=== PATIENT | male | born 1985 | race African-American/Black ===

== ENCOUNTER 2019-01-29 16:50 | Emergency (ER) | payer SELFPAY | END 2019-01-29 19:56 | disposition home or self-care (01) | LOC: JERFT 16:50 ==

== ENCOUNTER 2019-02-01 17:02 | Emergency (ER) | payer OTHER ==
--- NOTE | 2019-02-01 17:32 | PDOC ---
Rapid Medical Evaluation Chief Complaint: Penile Drainage Time Seen by Provider: 02/01/19 17:27 Medical Evaluation: Allergies Allergy/AdvReac Type Severity Reaction Status Date / Time No Known Allergies Allergy Verified 01/29/19 17:02 02/01/19 17:28 I have performed a brief in-person evaluation of this patient. The patient presents with a chief complaint of: recurrant penile drainage- treated last week for same Pertinent physical exam findings: well appearing I have ordered the following: Urine Gc/ Chlamyd / UA The patient will proceed to the ED for further evaluation. 02/01/19 17:31 Discharge Disposition - Diagnosis Penile discharge - Referrals - Patient Instructions - Post Discharge Activity
[2019-02-01 17:38] VITALS: BP 130/91; PULSE 85; TEMP 98.1; BMI 24.2
--- NOTE | 2019-02-01 17:53 | PDOC ---
History of Present Illness - General Chief Complaint: Penile Drainage Stated Complaint: DISCHARGE Time Seen by Provider: 02/01/19 17:27 History Source: Patient (clear penile discharge, seen 2 days ago, tx for STI, no pain) Exam Limitations: No Limitations - History of Present Illness Associated Symptoms: denies: rash Past History - Travel Traveled outside of the country in the last 30 days: No Close contact w/someone who was outside of country & ill: No - Past Medical History Allergies/Adverse Reactions: Allergies Allergy/AdvReac Type Severity Reaction Status Date / Time No Known Allergies Allergy Verified 02/01/19 17:31 COPD: No Dialysis: Yes (Hemodialysis) HTN: No - Surgical History Gastric Stapling: No - Immunization History Immunization Up to Date: No - Suicide/Smoking/Psychosocial Hx Smoking History: Never smoked Have you smoked in the past 12 months: No Information on smoking cessation initiated: No Hx Alcohol Use: No Drug/Substance Use Hx: No Review of Systems - Review of Systems Constitutional: No: Chills, Fever ABD/GI: No: Abdominal Distended, Nausea : Yes: Discharge. No: Burning, Dysuria, Frequency, Flank Pain, Hematuria, Incontinence, Pain, Urgency, Testicular Mass, Testicular Swelling, Testicular Pain *Physical Exam - Vital Signs Last Vital Signs Temp Pulse Resp BP Pulse Ox 98.1 F 85 18 130/91 98 02/01/19 17:28 02/01/19 17:28 02/01/19 17:28 02/01/19 17:28 02/01/19 17:28 - Physical Exam General Appearance: Yes: Nourished Male Genitalia: positive: normal genitalia, other (no discharge expressed, circumcised male). negative: discharge, testicular tenderness, testicular mass , hematuria Medical Decision Making - Medical Decision Making 02/01/19 17:52 33y/o M seen for penile discharge s/p unprotected intercourse 3wks ago treated empirically for GC/CT both cx neg pt reports he is here for f/u he has not had any sexual encounter since tx denies pelvic pain, dysuria, urinary frequency or testicular *DC/Admit/Observation/Transfer Diagnosis at time of Disposition: Penile discharge - Discharge Dispostion Disposition: HOME Condition at time of disposition: Stable Decision to Admit order: No - Referrals Referrals: Carmine Taylor MD [Staff Physician] - Amadou Jackson MD., [Staff Physician] - - Patient Instructions Printed Discharge Instructions: DI for Urethritis Additional Instructions: Your last culture was negative for any venereal disease you will be re-checked today please follow up primary care clinic and urology if symptoms persist always have protected sexual intercourse Return to the ER if worsening symptoms occurs. - Post Discharge Activity
== END 2019-02-01 18:23 | disposition home or self-care (01) ==
LOC: JERFT 17:02
DX: R36.9 Urethral discharge, unspecified (principal)
CPT/HCPCS: 99281-25

== ENCOUNTER 2019-10-19 14:07 | Emergency (ER) | payer OTHER ==
[2019-10-19 14:22] VITALS: BP 120/86; PULSE 77; TEMP 98.2; BMI 23.8
[2019-10-19] MEDS ORDERED: ACETAMINOPHEN 325 MG TABLET (FP) PO ONE (15:21)
[2019-10-19] MEDS ORDERED: MAG HYDROX/AL HYDROX/SIMETH -MYLANTA- ORAL SUSPENSION PO ONE (15:21)
[2019-10-19] MEDS ORDERED: ACETAMINOPHEN 325 MG TABLET (FP) ONE (15:25)
[2019-10-19] MEDS ORDERED: MAG HYDROX/AL HYDROX/SIMETH 30 ML UNIT-DOSE CUP ONE (15:26)
[2019-10-19 15:44] LABS: EOS % 1.7 % (0-4.5); HEMATOCRIT 35.4 % (35.4-49); HEMOGLOBIN 11.4 GM/dL (11.7-16.9); LYMPH % 16.2 % (8-40); MCHC 32.1 g/dl (32.0-35.9); MEAN CELL VOLUME 93.4 fl (80-96); MEAN PLT VOLUME 7.9 fl (7.5-11.1); MONO % 8.9 % (3.8-10.2); NEUT % 72.2 % (42.8-82.8); PLATELET COUNT 281 K/MM3 (134-434); RBC 3.79 M/mm3 (4.00-5.60); WHITE BLOOD COUNT 6.5 K/mm3 (4.0-10.0)
--- NOTE | 2019-10-19 15:53 | PDOC ---
History of Present Illness - General History Source: Patient - History of Present Illness Timing/Duration: reports: intermittent Abdominal Pain Onset Location: reports: epigastric <Yue CanelaSantosJaz - Last Filed: 10/19/19 16:00> <DenisseMaxwell - Last Filed: 10/22/19 13:41> - General Chief Complaint: Nausea/Vomiting Stated Complaint: VOMITING Time Seen by Provider: 10/19/19 14:52 Past History - Past Medical History COPD: No Dialysis: Yes (Hemodialysis) HTN: No - Surgical History Gastric Stapling: No - Immunization History Immunization Up to Date: No - Psycho Social/Smoking Cessation Hx Smoking History: Never smoked Have you smoked in the past 12 months: No Information on smoking cessation initiated: No Hx Alcohol Use: No Drug/Substance Use Hx: No <Yue CanelaSantosJaz - Last Filed: 10/19/19 16:00> <Maxwell Salcedo - Last Filed: 10/22/19 13:41> - Past Medical History Allergies/Adverse Reactions: Allergies Allergy/AdvReac Type Severity Reaction Status Date / Time No Known Allergies Allergy Verified 02/01/19 17:31 Review of Systems - Review of Systems Constitutional: No: Chills, Fever Respiratory: No: Cough, Shortness of Breath Cardiac (ROS): No: Chest Pain ABD/GI: Yes: Nausea, Vomiting. No: Blood Streaked Bowels, Constipated, Diarrhea, Rectal Bleeding, Tarry Stools : No: Burning, Dysuria, Flank Pain, Hematuria <Shruti Canela - Last Filed: 10/19/19 16:00> *Physical Exam - Vital Signs Last Vital Signs Temp Pulse Resp BP Pulse Ox 98.2 F 77 17 120/86 100 10/19/19 14:18 10/19/19 14:18 10/19/19 14:18 10/19/19 14:18 10/19/19 14:18 - Physical Exam General Appearance: Yes: Appropriately Dressed. No: Apparent Distress HEENT: positive: Normal Voice Neck: positive: Supple Respiratory/Chest: positive: Lungs Clear, Normal Breath Sounds. negative: Respiratory Distress Cardiovascular: positive: Regular Rate, S1, S2 Gastrointestinal/Abdominal: positive: Normal Bowel Sounds, Soft. negative: Tender, Distended, Guarding, Rebound Musculoskeletal: negative: CVA Tenderness Integumentary: positive: Dry, Warm Neurologic: positive: Fully Oriented, Alert, Normal Mood/Affect <Shruti Canela - Last Filed: 10/19/19 16:00> - Vital Signs Last Vital Signs Temp Pulse Resp BP Pulse Ox 98.2 F 77 17 120/86 100 10/19/19 14:18 10/19/19 14:18 10/19/19 14:18 10/19/19 14:18 10/19/19 14:18 <Maxwell Salcedo - Last Filed: 10/22/19 13:41> ED Treatment Course - LABORATORY CBC & Chemistry Diagram: 10/19/19 15:33 10/19/19 15:33 <Shruti Canela - Last Filed: 10/19/19 16:00> - LABORATORY CBC & Chemistry Diagram: 10/19/19 15:33 10/19/19 15:33 - ADDITIONAL ORDERS Additional order review: 10/19/19 15:33 RBC 3.79 L MCV 93.4 MCHC 32.1 RDW 18.0 H MPV 7.9 Neutrophils % 72.2 Lymphocytes % 16.2 Monocytes % 8.9 Eosinophils % 1.7 Basophils % 1.0 - Medications Given in the ED: ED Medications Discontinued Medications Generic Name Dose Route Start Last Admin Trade Name Constanza PRN Reason Stop Dose Admin Acetaminophen 650 mg 10/19/19 15:21 10/19/19 15:38 Tylenol - PO 10/19/19 15:22 650 mg ONCE ONE Administration Al Hydroxide/Mg Hydroxide 30 ml 10/19/19 15:21 10/19/19 15:37 Mylanta Suspension - PO 10/19/19 15:22 650 mg ONCE ONE Administration <Maxwell Salcedo - Last Filed: 10/22/19 13:41> Medical Decision Making - Medical Decision Making 10/19/19 15:19 33 yo M, HTN, ESRD on PD, here w/ epigastric "heart burn" x 3 days, on and off, worse when supine at nights, no a/w food. . Vomited twice. No change in BM, dysuria, f/c see exam Possible gatsritis/GERD, likely biliary, pancreatitis, UTI/Pyelo or appy Sxs since improved Exam wnl -ekg/labs given hx -meds -reassess 10/19/19 15:53 Patient signed out to [facility] pending w/u and eval <Shruti Canela - Last Filed: 10/19/19 16:00> - Medical Decision Making 10/22/19 13:41 I reviewed the case of the mid-level practitioner and was available for consultation while in the emergency department <Maxwell Salcedo - Last Filed: 10/22/19 13:41> Discharge - Discharge Information Problems reviewed: Yes <Shruti Canela - Last Filed: 10/19/19 16:00> <Maxwell Salcedo - Last Filed: 10/22/19 13:41> - Discharge Information Clinical Impression/Diagnosis: Dyspepsia Condition: Fair Disposition: HOME - Follow up/Referral Referrals: Cheo Murphy MD [Primary Care Provider] - - Patient Discharge Instructions Additional Instructions: Rest, drink lots of fluids: Teas, water, soups Alana zion, carbonated beverages for the bubbles May try peppermint teas Avoid heavy , spicy or fatty foods until symptoms have resolved Continue abgg-ayo-vclezxv medications for symptomatic relief-Amphojel, Gaviscon, Tums. Avoid taking Maalox or Mylanta as this may affect your electrolyte levels. Tylenol for pain Followup with private physician in one to 2 days as needed Return to emergency department for worsened symptoms, fevers, dehydration - Post Discharge Activity
[2019-10-19 16:21] LABS: ALBUMIN 3.5 g/dl (3.4-5.0); BILIRUBIN,TOTAL 1.2 mg/dL (0.2-1); BLOOD UREA NITROGEN 59.5 mg/dL (7-18); CALCIUM 9.3 mg/dL (8.5-10.1); POTASSIUM 3.7 mmol/L (3.5-5.1); TOT PROT 7.6 g/dl (6.4-8.2)
[2019-10-19 16:26] LABS: CREATININE 23.3 mg/dL (0.55-1.3)
--- NOTE | 2019-10-19 17:49 | PDOC ---
*Physical Exam - Vital Signs Last Vital Signs Temp Pulse Resp BP Pulse Ox 98.2 F 77 17 120/86 100 10/19/19 14:18 10/19/19 14:18 10/19/19 14:18 10/19/19 14:18 10/19/19 14:18 - Physical Exam General Appearance: Yes: Appropriately Dressed. No: Apparent Distress Gastrointestinal/Abdominal: positive: Normal Bowel Sounds, Soft. negative: Tender Musculoskeletal: positive: Normal Inspection. negative: CVA Tenderness ED Treatment Course - LABORATORY CBC & Chemistry Diagram: 10/19/19 15:33 10/19/19 15:33 - ADDITIONAL ORDERS Additional order review: Laboratory Results 10/19/19 15:33 Sodium 134 L Potassium 3.7 Chloride 91 L Carbon Dioxide 30 Anion Gap 13 BUN 59.5 H Creatinine 23.3 H* Est GFR (CKD-EPI)AfAm 2.54 Est GFR (CKD-EPI)NonAf 2.19 Random Glucose 100 Calcium 9.3 Total Bilirubin 1.2 H AST 13 L ALT 22 Alkaline Phosphatase 86 Total Protein 7.6 Albumin 3.5 Lipase 389 10/19/19 15:33 RBC 3.79 L MCV 93.4 MCHC 32.1 RDW 18.0 H MPV 7.9 Neutrophils % 72.2 Lymphocytes % 16.2 Monocytes % 8.9 Eosinophils % 1.7 Basophils % 1.0 - Medications Given in the ED: ED Medications Discontinued Medications Generic Name Dose Route Start Last Admin Trade Name Freq PRN Reason Stop Dose Admin Acetaminophen 650 mg 10/19/19 15:21 10/19/19 15:38 Tylenol - PO 10/19/19 15:22 650 mg ONCE ONE Administration Al Hydroxide/Mg Hydroxide 30 ml 10/19/19 15:21 10/19/19 15:37 Mylanta Suspension - PO 10/19/19 15:22 650 mg ONCE ONE Administration ED Progress Note - Progress Note Progress Note: 10/19/19 17:41 Received signout from TA Kwok. Briefly this is a 33-year-old man history of hypertension and end-stage renal disease on peritoneal dialysis 10.5 hours nightly who presents emergency department for evaluation of epigastric pain with nausea and vomiting starting this morning. He reported his pain 6/10 upon arrival describes as a burning sensation. Patient has received Tylenol and Mylanta Laboratory testing notable for creatinine of 23 which is consistent with the patient's baseline. T bili mildly elevated at 1.2. LFTs are unremarkable. Patient is pending EKG and disposition is pending reevaluation and EKG results. Medical Decision Making - Medical Decision Making 10/19/19 17:41 Patient reports his pain is currently 2/10 after receiving Maalox. EKG sinus rhythm with rate of 65. Intervals within normal limits with a QTC of 438. Normal axis. No ischemic changes noted. As patient currently feels better and has an unremarkable physical exam I feel it is safe to discharge the patient home to follow-up with renal for continued evaluation. Patient has been instructed to not take Maalox or Mylanta for dyspepsia as an outpatient and was recommended to take Tums, Gaviscon or Amphojel for GERD. I discussed the physical exam findings, ancillary test results and final diagnoses with the patient. I answered all of the patient's questions. The pat ient was satisfied with the care received and felt comfortable with the discharge plan and treatment plan. The patient will call their primary care physician within 24 hours to arrange follow-up and will return to the Emergency Department with any new, persistent or worsening symptoms. Portions of this note have been documented using voice recognition software. As a result, errors may occur in the ramp attendant process. Effort has been made to correct all grammatical and ramp attendant error, but some may have been missed which may produce sporadic inaccurate ramp attendant or nonsensical phrases. 10/19/19 17:52 Discharge - Discharge Information Problems reviewed: Yes Clinical Impression/Diagnosis: Dyspepsia Condition: Fair Disposition: HOME - Admission No - Follow up/Referral Referrals: Cheo Murphy MD [Primary Care Provider] - - Patient Discharge Instructions Additional Instructions: Rest, drink lots of fluids: Teas, water, soups Alana zion, carbonated beverages for the bubbles May try peppermint teas Avoid heavy , spicy or fatty foods until symptoms have resolved Continue kaoc-krc-bavdglz medications for symptomatic relief-Amphojel, Gaviscon, Tums. Avoid taking Maalox or Mylanta as this may affect your electrolyte levels. Tylenol for pain Followup with private physician in one to 2 days as needed Return to emergency department for worsened symptoms, fevers, dehydration - Post Discharge Activity
--- NOTE | 2019-10-21 09:53 | EKG ---
Test Reason : Blood Pressure : / mmHG Vent. Rate : 065 BPM Atrial Rate : 065 BPM P-R Int : 198 ms QRS Dur : 112 ms QT Int : 422 ms P-R-T Axes : 071 080 077 degrees QTc Int : 438 ms NORMAL SINUS RHYTHM POSSIBLE LEFT ATRIAL ENLARGEMENT BORDERLINE ECG NO PREVIOUS ECGS AVAILABLE Confirmed by Noé Roberts MD ([id number]) on 10/21/2019 9:53:03 AM Referred By: Confirmed By:Noé Roberts MD
== END 2019-10-19 18:35 | disposition home or self-care (01) ==
LOC: JER 14:07
DX: R10.13 Epigastric pain (principal); I12.0 Hypertensive chronic kidney disease with stage 5 chronic kidney disease or end stage renal disease; N18.6 End stage renal disease; Z99.2 Dependence on renal dialysis
CPT/HCPCS: 36415; 80053; 83690; 85025; 93005; 93010; 99284-25

== ENCOUNTER 2020-05-16 05:05 | Emergency (ER) | payer OTHER ==
[2020-05-16 05:17] VITALS: PULSE 81; TEMP 98.4; BMI 23.6
[2020-05-16] MEDS ORDERED: SODIUM CHLORIDE 0.9% 500 ML INFUS.BAG IV ONE (05:34)
[2020-05-16] MEDS ORDERED: ONDANSETRON 4 MG/2 ML VIAL IVPUSH ONE (05:35)
[2020-05-16] MEDS ORDERED: FAMOTIDINE 20 MG/50 ML IVPB 20 MG/50 ML MG IVPB ONE (05:35)
[2020-05-16] MEDS ORDERED: MAG HYDROX/AL HYDROX/SIMETH 30 ML UNIT-DOSE CUP PO ONE (05:36)
--- OUTSIDE RECORDS SUMMARY | 2020-05-16 05:51 | XMS ---
:1985 Author Organization [facility] Support Name Relationship Address Phone SE, SELF-EMPLOYED Unavailable Unavailable Unavailable SE Unavailable Unavailable Unavailable [employer] [place] [address] Re-disclosure Warning The records that you are about to access may contain information from federally- assisted alcohol or drug abuse programs. If such information is present, then the following federally mandated warning applies: This information has been disclosed to you from records protected by federal confidentiality rules (42 CFR part 2). The federal rules prohibit you from making any further disclosure of this information unless further disclosure is expressly permitted by the written consent of the person to whom it pertains or as otherwise permitted by 42 CFR part 2. A general authorization for the release of medical or other information is NOT sufficient for this purpose. The Federal rules restrict any use of the information to criminally investigate or prosecute any alcohol or drug abuse patient.The records that you are about to access may contain highly sensitive health information, the redisclosure of which is protected by Article 27-F of the [facility] Public Health law. If you continue you may haveaccess to information: Regarding HIV / AIDS; Provided by facilities licensed or operated by the [facility] Office of Mental Health; or Provided by the [facility] Office for People With Developmental Disabilities. If such information is present, then the following [facility] mandated warning applies: This information has been disclosed to you from confidential records which are protected by state law. State law prohibits you from making any further disclosure of this information without the specific written consent of the person to whom it pertains, or as otherwise permitted by law. Any unauthorized further disclosure in violation of state law may result in a fine or senior care sentence or both. A general authorization for the release of medical or other information is NOT sufficient authorization for further disclosure. Encounters Encounter Providers Location Date Indications Data Source(s ) Outpatient 04/18/2020 09:59:00 [facility] Outpatient 04/17/2020 11:45:00 [facility]) Outpatient 04/16/2020 01:14:00 [facility]) Outpatient 04/15/2020 10:57:00 [facility] Insurance Providers Payer name Policy type Policy ID Covered Covered green party's Policy P yasmin / Coverage green party ID relationship to Pleitez Inf ormation type pleitez [facility] [id number] SP [id number] CARE HMO/POS/EPO [facility] [id number] SP [id number] CARE MVP EXCHANGE [id number] SP [id number] PLAN SELF PAY SP INSURANCE [facility] MEDICAID [id number] SP [id number] O [facility] MEDICAID [id number] SP [id number] O
[2020-05-16] MEDS ORDERED: MAG HYDROX/AL HYDROX/SIMETH 30 ML UNIT-DOSE CUP ONE (05:58)
[2020-05-16 06:10] VITALS: BP 153/107
[2020-05-16 06:13] LABS: BASO % 0.5 % (0-2.0); HEMATOCRIT 37.9 % (35.4-49); HEMOGLOBIN 12.7 GM/dL (11.7-16.9); LYMPH % 7.7 % (8-40); MCH 28.9 pg (25.7-33.7); MCHC 33.4 g/dl (32.0-35.9); MEAN CELL VOLUME 86.3 fl (80-96); MEAN PLT VOLUME 8.8 fl (7.5-11.1); MONO % 21.7 % (3.8-10.2); NEUT % 70.1 % (42.8-82.8); PLATELET COUNT 187 K/MM3 (134-434); RDW 17.5 % (11.9-15.9); WHITE BLOOD COUNT 10.2 K/mm3 (4.0-10.0)
--- NOTE | 2020-05-16 06:28 | PDOC ---
Attending Attestation - Resident Resident Name: Maxwell De León - ED Attending Attestation I have performed the following: I have examined & evaluated the patient, The case was reviewed & discussed with the resident, I agree w/resident's findings & plan, Exceptions are as noted - HPI HPI: 05/16/20 06:54 See resident HPI - Physicial Exam PE: 05/16/20 06:54 Agree with documented exam - Medical Decision Making 05/16/20 06:54 Gerd, gastritis, pancreatitis, electrolyte derangement, dialysis sequelae f/u labs, symptomatic tx re-eval dispo per clinical course Discharge - Discharge Information Problems reviewed: Yes Clinical Impression/Diagnosis: Dyspepsia Condition: Stable Disposition: HOME - Follow up/Referral Referrals: Ajay Rogers MD [Staff Physician] - Cheo Murphy MD [Primary Care Provider] - - Patient Discharge Instructions Patient Printed Discharge Instructions: DI for Nausea -- Adult, DI for Vomiting -- Adult Additional Instructions: You were seen in the ER for nausea, vomiting. Your symptoms improved with medications. Your bloodwork was normal. Follow up with your densitometer reader (stomach doctor), and primary care physician as soon as possible, in the next 2- 3 days. Return to the ER if you develop weakness, confusion, intractable nausea, vomiting, or high fevers. - Post Discharge Activity
--- NOTE | 2020-05-16 06:29 | PDOC ---
History of Present Illness - General Chief Complaint: Nausea/Vomiting Stated Complaint: VOMITING Time Seen by Provider: 05/16/20 05:14 History Source: Patient - History of Present Illness Initial Comments: 05/16/20 06:20 34M w/hx GERD, ESRD on peritoneal dialysis secondary to HTN p/w two days of acute onset nausea, vomiting. He reports being unable to tolerate solid or liquid po secondary to vomiting. He reports multiple nbnb vomiting with any po intake. He reports completing usual peritoneal dialysis schedule without interruptions or recent changes. Surgical hx L AV fistula, peritoneal dialysis catheter. He reports similar prior episodes, but that this one is worse than prior. No bowel movements since symptom onset, but reports flatus. He denies any fevers, chills, weakness, confusion, chest pain, or sob. Past History - Medical History Allergies/Adverse Reactions: Allergies Allergy/AdvReac Type Severity Reaction Status Date / Time No Known Allergies Allergy Verified 05/16/20 05:15 COPD: No Dialysis: Yes (Hemodialysis) HTN: No - Surgical History Gastric Stapling: No - Immunization History Immunization Up to Date: No - Psycho-Social/Smoking History Smoking History: Never smoked Have you smoked in the past 12 months: No Information on smoking cessation initiated: No - Substance Abuse Hx (Audit-C & DAST Scrn) How often the patient has a drink containing alcohol: Never Score: In Men: 4 or > Positive; In Women: 3 or > Positive: 0 Screen Result (Pos requires Nsg. Audit-10AR): Negative In the last yr the pt used illegal drug/Rx for NonMed reason: No Score: Yes response is considered Positive: 0 Screen Result (Positive result requires Nsg. DAST-10): Negative Review of Systems - Review of Systems Able to Perform ROS?: Yes Comments:: 05/16/20 06:29 GENERAL/CONSTITUTIONAL: No fever or chills. No weakness. HEAD, EYES, EARS, NOSE AND THROAT: No change in vision. No ear pain or discharge. No sore throat. CARDIOVASCULAR: No chest pain or shortness of breath RESPIRATORY: No cough, wheezing, or hemoptysis. GASTROINTESTINAL: Nausea, vomiting. No diarrhea or constipation. GENITOURINARY: No dysuria, frequency, or change in urination. MUSCULOSKELETAL: No joint or muscle swelling or pain. No neck or back pain. SKIN: No rash NEUROLOGIC: No headache, vertigo, loss of consciousness, or change in strength /sensation. ENDOCRINE: No increased thirst. No abnormal weight change HEMATOLOGIC/LYMPHATIC: No anemia, easy bleeding, or history of blood clots. ALLERGIC/IMMUNOLOGIC: No hives or skin allergy. *Physical Exam - Vital Signs Last Vital Signs Temp Pulse Resp BP Pulse Ox 98.4 F 81 22 H 153/107 H 100 05/16/20 05:15 05/16/20 05:15 05/16/20 05:15 05/16/20 06:09 05/16/20 05:15 - Physical Exam 05/16/20 06:30 GENERAL: Awake, alert, and fully oriented, in no acute distress HEAD: No signs of trauma, normocephalic, atraumatic EYES: PERRLA, EOMI, sclera anicteric, conjunctiva clear ENT: Auricles normal inspection, hearing grossly normal, nares patent, oropharynx clear without exudates. Moist mucosa NECK: Normal ROM, supple, no lymphadenopathy, JVD, or masses LUNGS: No distress, speaks full sentences, clear to auscultation bilaterally HEART: Regular rate and rhythm, normal S1 and S2, no murmurs, rubs or gallops, peripheral pulses normal and equal bilaterally. ABDOMEN: Peritoneal dialysis catheter. Soft, nontender, normoactive bowel sounds. No guarding, no rebound. No masses EXTREMITIES : L AV fistula. Normal inspection, Normal range of motion, no edema. No clubbing or cyanosis NEUROLOGICAL: Cranial nerves II through XII grossly intact. Normal speech, normal gait, no focal sensorimotor deficits SKIN: Warm, Dry, normal turgor, no rashes or lesions noted ED Treatment Course - LABORATORY CBC & Chemistry Diagram: 05/16/20 05:40 05/16/20 05:40 - RADIOLOGY Radiology Studies Ordered: Category Date Time Status CHEST X-RAY PORTABLE* [RAD] Stat Radiology 05/16/20 05:34 Ordered - Medications Given in the ED: ED Medications Discontinued Medications Generic Name Dose Route Start Last Admin Trade Name Freq PRN Reason Stop Dose Admin Famotidine/Sodium Chloride 20 mg in 50 mls @ 100 mls/hr 05/16/20 05:35 05/16/20 06:06 Pepcid 20 Mg Premixed Ivpb - IVPB 05/16/20 06:04 100 mls/hr ONCE ONE Administration Ondansetron HCl 4 mg 05/16/20 05:35 05/16/20 06:06 Zofran Injection IVPUSH 05/16/20 05:36 4 mg ONCE ONE Administration Sodium Chloride 1,000 ml 05/16/20 05:34 05/16/20 05:49 Normal Saline - IV 05/16/20 05:35 1,000 ml ONCE ONE Administration Medical Decision Making - Medical Decision Making 05/16/20 06:32 34M w/hx ESRD on peritoneal dialysis p/w two days of acute onset nausea, vomiting. Ddx electrolyte derangement secondary to peritoneal dialysis. GERD also possible given similar prior episode that resolved rapidly with maalox. Pancreatitis possible, although no abdominal pain or tenderness on exam. Plan: CBC CMP EKG CXR Lipase Zofran Pepcid Maalox Dispo: Discharge pending reassessment 05/16/20 06:50 On reassessment, patient feels significant improvement. po challenge in progress. K - 3.1, plan for po k-jovana Plan for discharge with close GI follow up if patient now tolerating po Discharge - Discharge Information Problems reviewed: Yes Clinical Impression/Diagnosis: Dyspepsia Condition: Stable Disposition: HOME - Admission No - Follow up/Referral Referrals: Cheo Murphy MD [Primary Care Provider] - Ajay Rogers MD [Staff Physician] - - Patient Discharge Instructions Patient Printed Discharge Instructions: DI for Nausea -- Adult, DI for Vomiting -- Adult Additional Instructions: You were seen in the ER for nausea, vomiting. Your symptoms improved with medications. Your bloodwork was normal. Follow up with your internet designer (stomach doctor), and primary care physician as soon as possible, in the next 2- 3 days. Return to the ER if you develop weakness, confusion, intractable nausea, vomiting, or high fevers. - Post Discharge Activity
[2020-05-16 06:41] LABS: ALBUMIN 3.1 g/dl (3.4-5.0); BILIRUBIN,TOTAL 0.5 mg/dL (0.2-1); BLOOD UREA NITROGEN 73.8 mg/dL (7-18); CALCIUM 9.8 mg/dL (8.5-10.1); POTASSIUM 3.1 mmol/L (3.5-5.1); TOT PROT 8.4 g/dl (6.4-8.2)
[2020-05-16] MEDS ORDERED: POTASSIUM CHLORIDE TABS 20 MEQ TABLET.ER (FP) PO ONE ×2 (06:49→07:01)
[2020-05-16 07:12] LABS: CREATININE 24.7 mg/dL (0.55-1.3)
[2020-05-16 09:43] LABS: ANISOCYTOSIS 1+; MACROCYTOSIS 0; PLATELET ESTIMATE NORMAL
--- NOTE | 2020-05-16 10:30 | EKG ---
Test Reason : Blood Pressure : / mmHG Vent. Rate : 083 BPM Atrial Rate : 083 BPM P-R Int : 190 ms QRS Dur : 104 ms QT Int : 396 ms P-R-T Axes : 059 085 077 degrees QTc Int : 465 ms NORMAL SINUS RHYTHM POSSIBLE LEFT ATRIAL ENLARGEMENT NONSPECIFIC INTRAVENTRICULAR CONDUCTION DEFECT Confirmed by NANCY BROCK MD ([id number]) on 05/16/2020 10:30:02 AM Referred By: Confirmed By:NANCY BROCK MD
== END 2020-05-16 07:38 | disposition home or self-care (01) ==
LOC: JER 05:05
PROC: 3E033NZ Introduction of Analgesics, Hypnotics, Sedatives into Peripheral Vein, Percutaneous Approach (ICD-10-PCS; principal; 2020-05-16)
PROC: 3E033GC Introduction of Other Therapeutic Substance into Peripheral Vein, Percutaneous Approach (ICD-10-PCS; 2020-05-16)
DX: K30 Functional dyspepsia (principal)
CPT/HCPCS: 36415; 71045-TC-FY; 80053; 83605; 83690; 84484; 85025; 93005; 93010; 99285-25

== ENCOUNTER 2020-07-07 19:36 | Inpatient (IN) | payer OTHER ==
[2020-07-07 20:11] VITALS: BMI 10.8
[2020-07-07] MEDS ORDERED: morphine CARPU-JECT 4 MG/1 ML DISP.SYRIN IVPUSH ONE (20:55)
[2020-07-07 21:39] LABS: BASO % 0.7 % (0-2.0); EOS % 0.4 % (0-4.5); HEMATOCRIT 28.4 % (35.4-49); HEMOGLOBIN 9.5 GM/dL (11.7-16.9); LYMPH % 4.8 % (8-40); MCH 30.9 pg (25.7-33.7); MCHC 33.4 g/dl (32.0-35.9); MEAN CELL VOLUME 92.5 fl (80-96); MEAN PLT VOLUME 7.9 fl (7.5-11.1); MONO % 4.7 % (3.8-10.2); NEUT % 89.4 % (42.8-82.8); PLATELET COUNT 203 K/MM3 (134-434); RBC 3.07 M/mm3 (4.00-5.60); RDW 19.2 % (11.9-15.9); WHITE BLOOD COUNT 5.4 K/mm3 (4.0-10.0)
[2020-07-07] MEDS ORDERED: MORPHINE SULFATE 2 MG/ML VIAL ONE (21:40)
[2020-07-07 21:45] LABS: INR 1.23 (0.83-1.09)
[2020-07-07 21:47] LABS: ACTIVATED PTT 25.9 SECONDS (25.2-36.5)
[2020-07-07] MEDS ORDERED: ACETAMINOPHEN 1000 MG/100 ML VIAL (NON FORMULARY) IVPB ONE (22:02)
[2020-07-07 22:03] LABS: POTASSIUM 3.7 mmol/L (3.5-5.1)
[2020-07-07 22:05] LABS: CALCIUM 8.8 mg/dL (8.5-10.1)
[2020-07-07 22:06] LABS: BLOOD UREA NITROGEN 66.5 mg/dL (7-18)
[2020-07-07] MEDS ORDERED: ACETAMINOPHEN INJECTION 100 ML IVPB ONE (22:08)
[2020-07-07 22:10] LABS: BILIRUBIN,TOTAL 0.7 mg/dL (0.2-1); TOT PROT 6.6 g/dl (6.4-8.2)
[2020-07-07] MEDS ORDERED: SODIUM CHLORIDE 0.9% 500 ML INFUS.BAG IV ONE (22:46)
[2020-07-07] MEDS ORDERED: VANCOMYCIN 1 GM in D5W (PRE-DOCKED) 1,000 MG/250 ML IVPB ONE (22:47)
[2020-07-07] MEDS ORDERED: PIPERACILLIN/TAZOB 4.5 GM 4.5 GM in DEXTROSE 5%-WATER 100 ML IVPB ONE (22:59)
[2020-07-07] MEDS ORDERED: PIPERACILLIN/TAZOB 4.5 GM 4.5 GM/100 ML BAG IVPB ONE (23:45)
[2020-07-07] MEDS ORDERED: VANCOMYCIN 1 GRAM (PRE-DOCKED) 1,000 MG/250 ML BAG IVPB ONE (23:45)
[2020-07-08] MEDS ORDERED: ACETAMINOPHEN 1000 MG/100 ML VIAL (NON FORMULARY) IVPB PRN ×4 (04:29→06:39)
[2020-07-08] MEDS ORDERED: HEPARIN NA (PORCINE) 5,000 UNITS/ML 1ML VIAL SQ SCH (06:00)
[2020-07-08 06:21] LABS: HEMATOCRIT 26.4 % (35.4-49); HEMOGLOBIN 8.7 GM/dL (11.7-16.9); MCH 30.5 pg (25.7-33.7); MCHC 32.9 g/dl (32.0-35.9); MEAN CELL VOLUME 92.7 fl (80-96); MEAN PLT VOLUME 7.6 fl (7.5-11.1); PLATELET COUNT 161 K/MM3 (134-434); RBC 2.85 M/mm3 (4.00-5.60); RDW 19.1 % (11.9-15.9); WHITE BLOOD COUNT 8.8 K/mm3 (4.0-10.0)
[2020-07-08 06:40] LABS: ALBUMIN 2.5 g/dl (3.4-5.0); BLOOD UREA NITROGEN 71.3 mg/dL (7-18); CALCIUM 8.2 mg/dL (8.5-10.1)
[2020-07-08 06:41] LABS: MAGNESIUM 1.4 mg/dL (1.8-2.4)
[2020-07-08 06:43] LABS: IRON SERUM 9 ug/dL (50-175)
[2020-07-08 06:44] LABS: PHOSPHOROUS 3.4 mg/dL (2.5-4.9); TOTAL IRON BINDING CAPACITY 190 ug/dL (250-450)
[2020-07-08 06:45] LABS: TOT PROT 5.9 g/dl (6.4-8.2)
[2020-07-08 07:02] LABS: CREATININE 23.1 mg/dL (0.55-1.3)
[2020-07-08] MEDS: SEVELAMER CARBONATE 800 MG TAB (FP) PO SCH ×2 (09:38→17:30)
[2020-07-08] MEDS: LOSARTAN POTASSIUM 50 MG TABLET PO SCH (10:00)
[2020-07-08] MEDS ORDERED: PIPERACILLIN/TAZOB 2.25 GM 2.25 GM in DEXTROSE 5%-WATER - 50 ML IVPB SCH (10:00)
[2020-07-08] MEDS: CALCITRIOL 0.25 MCG CAPSULE (FP) PO SCH (10:00)
[2020-07-08] MEDS ORDERED: LABETALOL HCL 100 MG TABLET (FP) ONE ×2 (10:28→23:35)
[2020-07-08] MEDS ORDERED: LOSARTAN POTASSIUM 50 MG TABLET ONE (10:29)
[2020-07-08] MEDS: POLYETHYLENE GLYCOL 3350 255 GM BTL PO SCH (10:45)
[2020-07-08] MEDS: LABETALOL HCL 200 MG, LABETALOL HCL 100 MG PO SCH (10:46)
[2020-07-08] MEDS: PIPERACILLIN/TAZOB 2.25 GM 2.25 GM in DEXTROSE 5%-WATER - 50 ML IVPB SCH ×2 (14:16→18:02)
[2020-07-08] MEDS ORDERED: PIPERACILLIN/TAZOB 2.25 GM 2.25 GM/50 ML BAG IVPB ONE (14:24)
[2020-07-08] MEDS ORDERED: HEPARIN NA (PORCINE) 5,000 UNITS/ML 1ML VIAL ONE (23:36)
[2020-07-09] MEDS ORDERED: PIPERACILLIN/TAZOB 2.25 GM 2.25 GM/50 ML BAG IVPB ONE (01:11)
[2020-07-09] MEDS: HEPARIN NA (PORCINE) 5,000 UNITS/ML 1ML VIAL SQ SCH ×3 (01:30→21:30)
[2020-07-09] MEDS: LABETALOL HCL 200 MG, LABETALOL HCL 100 MG PO SCH ×4 (01:31→21:30)
[2020-07-09] MEDS: PIPERACILLIN/TAZOB 2.25 GM 2.25 GM in DEXTROSE 5%-WATER - 50 ML IVPB SCH ×3 (01:31→17:56)
[2020-07-09] MEDS ORDERED: ACETAMINOPHEN INJECTION 100 ML IVPB ONE (02:55)
[2020-07-09] MEDS: PERITONEAL DIALYSIS 2.5% SOLN 2,500 ML IP SCH ×4 (07:00→21:06)
[2020-07-09 07:37] LABS: BASO % 0.4 % (0-2.0); EOS % 0.1 % (0-4.5); HEMATOCRIT 26.7 % (35.4-49); HEMOGLOBIN 8.6 GM/dL (11.7-16.9); LYMPH % 6.4 % (8-40); MCH 30.1 pg (25.7-33.7); MCHC 32.3 g/dl (32.0-35.9); MEAN CELL VOLUME 93.2 fl (80-96); MEAN PLT VOLUME 8.8 fl (7.5-11.1); MONO % 6.7 % (3.8-10.2); NEUT % 86.4 % (42.8-82.8); PLATELET COUNT 162 K/MM3 (134-434); RBC 2.87 M/mm3 (4.00-5.60); RDW 18.9 % (11.9-15.9); WHITE BLOOD COUNT 11.6 K/mm3 (4.0-10.0)
[2020-07-09 07:49] LABS: POTASSIUM 4.5 mmol/L (3.5-5.1)
[2020-07-09 07:52] LABS: CALCIUM 8.4 mg/dL (8.5-10.1)
[2020-07-09 07:53] LABS: ALBUMIN 2.1 g/dl (3.4-5.0); MAGNESIUM 1.9 mg/dL (1.8-2.4)
[2020-07-09 07:58] LABS: TOT PROT 5.5 g/dl (6.4-8.2)
[2020-07-09 08:03] LABS: BILIRUBIN,TOTAL 0.8 mg/dL (0.2-1)
[2020-07-09] MEDS: SEVELAMER CARBONATE 800 MG TAB (FP) PO SCH ×2 (08:04→17:44)
[2020-07-09 08:05] LABS: BLOOD UREA NITROGEN 99.9 mg/dL (7-18)
[2020-07-09 08:12] LABS: CREATININE 26.4 mg/dL (0.55-1.3)
[2020-07-09] MEDS ORDERED: MORPHINE SULFATE 2 MG/ML VIAL IM PRN (08:31)
[2020-07-09] MEDS: ONDANSETRON 4 MG/2 ML VIAL IVPUSH ONE ×2 (08:33→08:38)
[2020-07-09 11:00] LABS: BF WBC & OTHER NUCLEATED CELLS 23861 /mm3
[2020-07-09] MEDS ORDERED: LABETALOL HCL 100 MG TABLET (FP) ONE ×2 (11:06→21:09)
[2020-07-09] MEDS ORDERED: LABETALOL HCL 200 MG TABLET (FP) ONE ×2 (11:06→21:09)
[2020-07-09] MEDS ORDERED: PT OWN MED DRAWER 7, Y5N ONE ×2 (11:07→16:27)
[2020-07-09] MEDS ORDERED: DEXTROSE 5%-WATER - 50 ML IVPB ONE ×2 (11:07→16:29)
[2020-07-09] MEDS ORDERED: PIPERACILLIN/TAZOBACTAM 2.25 GM VIAL IVPB ONE ×2 (11:07→16:28)
[2020-07-09] MEDS: LOSARTAN POTASSIUM 50 MG TABLET PO SCH ×2 (11:12→11:40)
[2020-07-09] MEDS: CALCITRIOL 0.25 MCG CAPSULE (FP) PO SCH (11:13)
[2020-07-09] MEDS: ACETAMINOPHEN 500 MG TABLET (FP) PO PRN (11:40)
[2020-07-09] MEDS: POLYETHYLENE GLYCOL 3350 255 GM BTL PO SCH (11:46)
[2020-07-09] MEDS ORDERED: LORazepam 2 MG/ML SDV VIAL IVPUSH ONE (17:00)
[2020-07-09] MEDS ORDERED: LORazepam 2 MG/ML SDV VIAL IVPUSH PRN (17:03)
[2020-07-09] MEDS ORDERED: MORPHINE SULFATE 2 MG/ML VIAL IV PRN (17:16)
[2020-07-10] MEDS: morphine SULFATE 4 MG/ML VIAL IV PRN ×3 (00:11→21:18)
[2020-07-10] MEDS: PERITONEAL DIALYSIS 2.5% SOLN 2,500 ML IP SCH ×4 (01:25→18:52)
[2020-07-10] MEDS ORDERED: PIPERACILLIN/TAZOBACTAM 2.25 GM VIAL IVPB ONE ×3 (01:28→17:24)
[2020-07-10] MEDS ORDERED: DEXTROSE 5%-WATER - 50 ML IVPB ONE ×3 (01:28→17:24)
[2020-07-10] MEDS: PIPERACILLIN/TAZOB 2.25 GM 2.25 GM in DEXTROSE 5%-WATER - 50 ML IVPB SCH ×3 (01:54→17:27)
[2020-07-10 07:22] LABS: BASO % 0.2 % (0-2.0); EOS % 1.6 % (0-4.5); HEMATOCRIT 26.3 % (35.4-49); HEMOGLOBIN 8.7 GM/dL (11.7-16.9); LYMPH % 9.7 % (8-40); MCHC 33.1 g/dl (32.0-35.9); MEAN CELL VOLUME 90.8 fl (80-96); MEAN PLT VOLUME 8.5 fl (7.5-11.1); NEUT % 83.5 % (42.8-82.8); PLATELET COUNT 182 K/MM3 (134-434)
[2020-07-10 08:11] LABS: POTASSIUM 3.7 mmol/L (3.5-5.1)
[2020-07-10] MEDS: SEVELAMER CARBONATE 800 MG TAB (FP) PO SCH ×2 (08:12→17:26)
[2020-07-10 08:29] LABS: CALCIUM 8.4 mg/dL (8.5-10.1)
[2020-07-10 08:30] LABS: BLOOD UREA NITROGEN 95.1 mg/dL (7-18); MAGNESIUM 2.2 mg/dL (1.8-2.4)
[2020-07-10 08:33] LABS: BILIRUBIN,TOTAL 0.7 mg/dL (0.2-1); TOT PROT 5.5 g/dl (6.4-8.2)
[2020-07-10 08:52] LABS: CREATININE 24.3 mg/dL (0.55-1.3)
[2020-07-10] MEDS ORDERED: LABETALOL HCL 200 MG TABLET (FP) ONE ×2 (08:53→20:52)
[2020-07-10] MEDS ORDERED: LABETALOL HCL 100 MG TABLET (FP) ONE ×2 (08:53→20:52)
[2020-07-10] MEDS: LABETALOL HCL 200 MG, LABETALOL HCL 100 MG PO SCH ×2 (09:01→21:14)
[2020-07-10] MEDS: CALCITRIOL 0.25 MCG CAPSULE (FP) PO SCH (09:01)
[2020-07-10] MEDS: LOSARTAN POTASSIUM 50 MG TABLET PO SCH (09:02)
[2020-07-10] MEDS: HEPARIN NA (PORCINE) 5,000 UNITS/ML 1ML VIAL SQ SCH ×2 (09:02→21:15)
[2020-07-10] MEDS: POLYETHYLENE GLYCOL 3350 255 GM BTL PO SCH (09:02)
[2020-07-10] MEDS ORDERED: ONDANSETRON 4 MG/2 ML VIAL IVPUSH ONE (09:23)
[2020-07-10] MEDS ORDERED: ONDANSETRON 4 MG/2 ML VIAL IVPB PRN (09:25)
[2020-07-10] MEDS ORDERED: CEFTAZIDIME PENTAHYDRATE 1 GM in DEXTROSE 5%-WATER - 100 ML IP ONE (09:26)
[2020-07-10] MEDS ORDERED: CEFAZOLIN 1 GM/D5W 1 GM/50 ML BAG IP ONE (09:28)
[2020-07-10] MEDS: ACETAMINOPHEN 500 MG TABLET (FP) PO PRN ×2 (09:33→18:21)
[2020-07-10] MEDS ORDERED: CEFAZOLIN IP SCH (13:00)
[2020-07-10] MEDS ORDERED: CEFTAZIDIME PENTAHYDRATE IP SCH (13:00)
[2020-07-10] MEDS ORDERED: ceFAZolin SODIUM 1 GM VIAL IP ONE (13:00)
[2020-07-10] MEDS ORDERED: cefTAZidime PENTAHYDRATE 1 GM/50ML PRE-DOCKED (RESTRICTED TO ID) IVPB ONE (13:00)
[2020-07-10] MEDS ORDERED: PERITONEAL DIALYSIS 2.5% IP SCH (13:00)
[2020-07-11] MEDS ORDERED: PIPERACILLIN/TAZOBACTAM 2.25 GM VIAL IVPB ONE ×2 (00:45→09:52)
[2020-07-11] MEDS ORDERED: DEXTROSE 5%-WATER - 50 ML IVPB ONE ×2 (00:46→09:53)
[2020-07-11] MEDS: PIPERACILLIN/TAZOB 2.25 GM 2.25 GM in DEXTROSE 5%-WATER - 50 ML IVPB SCH ×2 (01:08→10:19)
[2020-07-11] MEDS: PERITONEAL DIALYSIS 2.5% SOLN 2,500 ML IP SCH ×4 (01:08→18:35)
[2020-07-11] MEDS: SEVELAMER CARBONATE 800 MG TAB (FP) PO SCH ×2 (08:47→17:05)
[2020-07-11 09:05] LABS: BASO % 0.6 % (0-2.0); EOS % 3.8 % (0-4.5); HEMATOCRIT 27.1 % (35.4-49); HEMOGLOBIN 8.7 GM/dL (11.7-16.9); LYMPH % 16.1 % (8-40); MCH 29.6 pg (25.7-33.7); MCHC 32.2 g/dl (32.0-35.9); MEAN CELL VOLUME 91.8 fl (80-96); MEAN PLT VOLUME 8.3 fl (7.5-11.1); MONO % 4.7 % (3.8-10.2); NEUT % 74.8 % (42.8-82.8); PLATELET COUNT 195 K/MM3 (134-434); RBC 2.95 M/mm3 (4.00-5.60); WHITE BLOOD COUNT 3.3 K/mm3 (4.0-10.0)
[2020-07-11] MEDS ORDERED: cloNIDine-TTS 0.3 MG /24 HRS PATCH.TDWK TD SCH (09:15)
[2020-07-11 09:25] LABS: CALCIUM 7.9 mg/dL (8.5-10.1)
[2020-07-11 09:26] LABS: BLOOD UREA NITROGEN 73.1 mg/dL (7-18); MAGNESIUM 1.8 mg/dL (1.8-2.4)
[2020-07-11 09:31] LABS: BILIRUBIN,TOTAL 0.5 mg/dL (0.2-1); TOT PROT 5.6 g/dl (6.4-8.2)
[2020-07-11 09:45] LABS: CREATININE 21.8 mg/dL (0.55-1.3)
[2020-07-11] MEDS ORDERED: LABETALOL HCL 200 MG TABLET (FP) ONE ×2 (09:52→22:03)
[2020-07-11] MEDS ORDERED: LABETALOL HCL 100 MG TABLET (FP) ONE ×2 (09:52→22:03)
[2020-07-11] MEDS: LOSARTAN POTASSIUM 50 MG TABLET PO SCH (10:20)
[2020-07-11] MEDS: LABETALOL HCL 200 MG, LABETALOL HCL 100 MG PO SCH ×2 (10:20→22:06)
[2020-07-11] MEDS: HEPARIN NA (PORCINE) 5,000 UNITS/ML 1ML VIAL SQ SCH ×2 (10:21→22:06)
[2020-07-11] MEDS: CALCITRIOL 0.25 MCG CAPSULE (FP) PO SCH (10:24)
[2020-07-11] MEDS: POLYETHYLENE GLYCOL 3350 255 GM BTL PO SCH (10:27)
[2020-07-11] MEDS ORDERED: POTASSIUM CHLORIDE TABS 20 MEQ TABLET.ER (FP) PO ONE (11:49)
[2020-07-11] MEDS ORDERED: CEFAZOLIN 1 GM/D5W 1 GM/50 ML BAG IP ONE (11:59)
[2020-07-11] MEDS ORDERED: CEFTAZIDIME PENTAHYDRATE 1 GM in DEXTROSE 5%-WATER - 100 ML IP ONE (12:00)
[2020-07-11] MEDS ORDERED: CEFAZOLIN IP SCH ×2 (13:15→14:00)
[2020-07-11] MEDS ORDERED: CEFTAZIDIME PENTAHYDRATE IP SCH ×2 (13:15→14:00)
[2020-07-11] MEDS ORDERED: PERITONEAL DIALYSIS 2.5% IP SCH ×2 (13:15→14:00)
[2020-07-11 18:49] VITALS: BP 135/96; PULSE 69; TEMP 98.3
== END 2020-07-12 00:45 | disposition home or self-care (01) | DRG 371 ==
LOC: JER 19:36 → JERBED 07-08 00:28 → J4S 07-09 05:53
PROVIDERS: ADMIT Internal Medicine; ATTEND Nurse Practitioner Family
DX: K65.2 Spontaneous bacterial peritonitis (principal); N18.6 End stage renal disease; E87.2 Acidosis; I31.3 Pericardial effusion (noninflammatory); I12.0 Hypertensive chronic kidney disease with stage 5 chronic kidney disease or end stage renal disease; K21.9 Gastro-esophageal reflux disease without esophagitis; K59.09 Other constipation; K64.9 Unspecified hemorrhoids; D63.1 Anemia in chronic kidney disease; R00.0 Tachycardia, unspecified; R10.9 Unspecified abdominal pain; E87.6 Hypokalemia; I51.7 Cardiomegaly; N28.1 Cyst of kidney, acquired; R11.2 Nausea with vomiting, unspecified; Z99.2 Dependence on renal dialysis
CPT/HCPCS: 36415; 71045-TC-FY; 74176-TC; 80053; 82272; 82945; 83540; 83550; 83605; 83615; 83690; 83735; 83986; 84100; 85025; 85027; 85610; 85730; 87040; 87070; 87075; 87205; 93005; 93010; 93306-TC; 99285-25; C9803; G0480; J0131; J1644; U0003

== ENCOUNTER 2021-01-29 15:25 | Inpatient (IN) | payer BC, OTHER ==
[2021-01-29] MEDS ORDERED: ONDANSETRON *ODT* 4 MG TABLET SL ONE (16:39)
[2021-01-29] MEDS ORDERED: ONDANSETRON *ODT* 4 MG TABLET ONE (16:57)
[2021-01-29 17:52] LABS: BASO % 0.7 % (0-2.0); EOS % 0.4 % (0-4.5); HEMATOCRIT 48.1 % (35.4-49); HEMOGLOBIN 16.2 GM/dL (11.7-16.9); LYMPH % 8.9 % (8-40); MCH 30.1 pg (25.7-33.7); MCHC 33.7 g/dl (32.0-35.9); MEAN CELL VOLUME 89.3 fl (80-96); MEAN PLT VOLUME 8.2 fl (7.5-11.1); MONO % 5.4 % (3.8-10.2); NEUT % 84.6 % (42.8-82.8); PLATELET COUNT 357 10^3/uL (134-434); RBC 5.38 M/mm3 (4.00-5.60); RDW 15.9 % (11.9-15.9)
[2021-01-29 18:13] LABS: CHLORIDE 90 mmol/L (98-107); SODIUM 128 mmol/L (136-145)
[2021-01-29 18:15] LABS: ALBUMIN 3.5 g/dl (3.4-5.0); BLOOD UREA NITROGEN 58.6 mg/dL (7-18); CALCIUM 10.8 mg/dL (8.5-10.1); CO2 27 mmol/L (21-32); GLUCOSE,RANDOM 112 mg/dL (74-106); MAGNESIUM 2.4 mg/dL (1.8-2.4)
[2021-01-29 18:19] LABS: PHOSPHOROUS 4.5 mg/dL (2.5-4.9)
[2021-01-29 18:20] LABS: BILIRUBIN,TOTAL 0.7 mg/dL (0.2-1); TOT PROT 10.2 g/dl (6.4-8.2)
[2021-01-29 18:21] LABS: ALK PHOS 103 U/L (45-117)
[2021-01-29 18:32] LABS: ANION GAP 11 MMOL/L (8-16); CREATININE 21.6 mg/dL (0.55-1.3); SGOT/AST 83 U/L (15-37); SGPT/ALT 26 U/L (13-61)
[2021-01-29 20:39] LABS: CHLORIDE 87 mmol/L (98-107)
[2021-01-29 20:41] LABS: BLOOD UREA NITROGEN 60.6 mg/dL (7-18); CALCIUM 10.5 mg/dL (8.5-10.1); CO2 26 mmol/L (21-32); GLUCOSE,RANDOM 95 mg/dL (74-106)
[2021-01-29 20:42] LABS: ALBUMIN 2.9 g/dl (3.4-5.0)
[2021-01-29 20:46] LABS: TOT PROT 10.8 g/dl (6.4-8.2)
[2021-01-29 21:20] LABS: ANION GAP 3 MMOL/L (8-16); SODIUM 115 mmol/L (136-145)
[2021-01-29 23:05] LABS: CHLORIDE 90 mmol/L (98-107); SODIUM 131 mmol/L (136-145)
[2021-01-29 23:07] LABS: ANION GAP 19 MMOL/L (8-16); CALCIUM 10.7 mg/dL (8.5-10.1); CO2 22 mmol/L (21-32)
[2021-01-29 23:08] LABS: BLOOD UREA NITROGEN 62.8 mg/dL (7-18); GLUCOSE,RANDOM 124 mg/dL (74-106)
[2021-01-29] MEDS ORDERED: SODIUM CHLORIDE 250 ML IV PRN (23:18)
[2021-01-29 23:47] LABS: CREATININE 22.2 mg/dL (0.55-1.3)
[2021-01-30] MEDS ORDERED: METOCLOPRAMIDE HCL INJECTION 10 MG/2 ML VIAL IVPUSH PRN (01:43)
[2021-01-30] MEDS ORDERED: LABETALOL HCL 5 MG/1 ML (100MG/20 ML VIAL) IVPUSH ONE (03:03)
[2021-01-30] MEDS ORDERED: LABETALOL HCL 5 MG/1 ML (100MG/20 ML VIAL) IVPB ONE (03:06)
[2021-01-30] MEDS ORDERED: METOPROLOL TARTRATE 5 MG/5 ML VIAL IVPB ONE ×2 (03:38→05:02)
[2021-01-30] MEDS ORDERED: NITROGLYCERIN SUBLINGUAL 1/200 0.3 MG BTL SL ONE ×2 (03:40→03:45)
[2021-01-30] MEDS: PANTOPRAZOLE SODIUM 40 MG VIAL IVPUSH SCH ×2 (04:01→11:39)
[2021-01-30] MEDS ORDERED: hydrALAZINE HCL 20 MG/ML VIAL IM ONE (05:02)
[2021-01-30 05:36] VITALS: BMI 21.4
[2021-01-30] MEDS ORDERED: LABETALOL HCL 5 MG/1 ML (100MG/20 ML VIAL) IVPUSH PRN (06:11)
[2021-01-30 09:06] LABS: HEMATOCRIT 44.1 % (35.4-49); HEMOGLOBIN 14.9 GM/dL (11.7-16.9); MCHC 33.8 g/dl (32.0-35.9); MEAN CELL VOLUME 88.6 fl (80-96); MEAN PLT VOLUME 8.2 fl (7.5-11.1); PLATELET COUNT 309 10^3/uL (134-434); RBC 4.98 M/mm3 (4.00-5.60); RDW 15.6 % (11.9-15.9)
[2021-01-30 09:36] LABS: CHLORIDE 92 mmol/L (98-107); SODIUM 132 mmol/L (136-145)
[2021-01-30 09:44] LABS: BLOOD UREA NITROGEN 52.4 mg/dL (7-18)
[2021-01-30 09:45] LABS: ANION GAP 15 MMOL/L (8-16); CALCIUM 10.4 mg/dL (8.5-10.1); CO2 25 mmol/L (21-32); GLUCOSE,RANDOM 116 mg/dL (74-106)
[2021-01-30 09:46] LABS: MAGNESIUM 2.1 mg/dL (1.8-2.4)
[2021-01-30 09:48] LABS: PHOSPHOROUS 4.7 mg/dL (2.5-4.9); SGOT/AST 15 U/L (15-37); SGPT/ALT 17 U/L (13-61)
[2021-01-30 09:49] LABS: BILIRUBIN,TOTAL 0.6 mg/dL (0.2-1)
[2021-01-30 09:53] LABS: ALK PHOS 91 U/L (45-117)
[2021-01-30 09:58] LABS: ALBUMIN 3.5 g/dl (3.4-5.0); CREATININE 19.8 mg/dL (0.55-1.3); TOT PROT 8.5 g/dl (6.4-8.2)
[2021-01-30 10:48] LABS: BF WBC & OTHER NUCLEATED CELLS 38 /mm3
[2021-01-30 13:11] LABS: BASO % 0.4 % (0-2.0); EOS % 0.1 % (0-4.5); HEMATOCRIT 44.4 % (35.4-49); HEMOGLOBIN 14.7 GM/dL (11.7-16.9); LYMPH % 6.7 % (8-40); MCH 29.3 pg (25.7-33.7); MEAN CELL VOLUME 88.9 fl (80-96); MEAN PLT VOLUME 8.2 fl (7.5-11.1); MONO % 6.8 % (3.8-10.2); PLATELET COUNT 302 10^3/uL (134-434); RDW 15.7 % (11.9-15.9); WHITE BLOOD COUNT 13.2 K/mm3 (4.0-10.0)
[2021-01-30 13:27] LABS: CHLORIDE 93 mmol/L (98-107); SODIUM 134 mmol/L (136-145)
[2021-01-30 13:30] LABS: CALCIUM 10.2 mg/dL (8.5-10.1)
[2021-01-30 13:31] LABS: ALBUMIN 3.3 g/dl (3.4-5.0); ANION GAP 15 MMOL/L (8-16); BLOOD UREA NITROGEN 34.5 mg/dL (7-18); CO2 26 mmol/L (21-32); GLUCOSE,RANDOM 163 mg/dL (74-106); MAGNESIUM 1.9 mg/dL (1.8-2.4)
[2021-01-30 13:34] LABS: PHOSPHOROUS 3.5 mg/dL (2.5-4.9); SGOT/AST 18 U/L (15-37); SGPT/ALT 19 U/L (13-61)
[2021-01-30 13:35] LABS: BILIRUBIN,TOTAL 0.7 mg/dL (0.2-1); TOT PROT 8.5 g/dl (6.4-8.2)
[2021-01-30 13:36] LABS: ALK PHOS 91 U/L (45-117); CREATININE 13.7 mg/dL (0.55-1.3)
[2021-01-30 14:13] LABS: BODY FLUID MACROPHAGES 14 %; BODY FLUID MONOCYTE 4 %
[2021-01-30] MEDS ORDERED: PERITONEAL DIALYSIS 2.5% SOLN 2,500 ML IP ONE (14:15)
[2021-01-30] MEDS ORDERED: SEVELAMER CARBONATE 800 MG TAB (FP) PO SCH (17:30)
[2021-01-30] MEDS: cloNIDine HCL 0.1 MG TABLET PO SCH ×2 (21:05→22:49)
[2021-01-31] MEDS: PANTOPRAZOLE SODIUM 40 MG VIAL IVPUSH SCH (09:38)
[2021-01-31] MEDS: cloNIDine HCL 0.1 MG TABLET PO SCH (09:38)
[2021-01-31] MEDS ORDERED: CALCITRIOL 0.25 MCG CAPSULE (FP) PO SCH (10:00)
[2021-01-31] MEDS ORDERED: LOSARTAN POTASSIUM 50 MG TABLET PO SCH (10:30)
[2021-01-31 10:40] LABS: BASO % 0.5 % (0-2.0); EOS % 1.3 % (0-4.5); HEMATOCRIT 39.6 % (35.4-49); HEMOGLOBIN 13.5 GM/dL (11.7-16.9); LYMPH % 12.1 % (8-40); MCH 30.4 pg (25.7-33.7); MEAN CELL VOLUME 89.3 fl (80-96); MEAN PLT VOLUME 7.6 fl (7.5-11.1); MONO % 7.9 % (3.8-10.2); NEUT % 78.2 % (42.8-82.8); PLATELET COUNT 218 10^3/uL (134-434); RBC 4.43 M/mm3 (4.00-5.60); RDW 15.5 % (11.9-15.9); WHITE BLOOD COUNT 7.9 K/mm3 (4.0-10.0)
[2021-01-31 10:48] LABS: CHLORIDE 89 mmol/L (98-107); SODIUM 130 mmol/L (136-145)
[2021-01-31 11:09] LABS: ANION GAP 15 MMOL/L (8-16); CALCIUM 9.8 mg/dL (8.5-10.1); CO2 26 mmol/L (21-32); MAGNESIUM 2.5 mg/dL (1.8-2.4)
[2021-01-31 11:10] LABS: GLUCOSE,RANDOM 158 mg/dL (74-106)
[2021-01-31 11:12] LABS: SGOT/AST 20 U/L (15-37)
[2021-01-31 11:13] LABS: PHOSPHOROUS 3.7 mg/dL (2.5-4.9)
[2021-01-31 11:14] LABS: SGPT/ALT 15 U/L (13-61); TOT PROT 7.4 g/dl (6.4-8.2)
[2021-01-31 11:15] LABS: ALK PHOS 72 U/L (45-117)
[2021-01-31 11:16] LABS: BILIRUBIN,TOTAL 0.5 mg/dL (0.2-1)
[2021-01-31 11:19] LABS: BLOOD UREA NITROGEN 66.2 mg/dL (7-18); CREATININE 17.8 mg/dL (0.55-1.3)
[2021-01-31] MEDS ORDERED: POTASSIUM CHLORIDE TABS 20 MEQ TABLET.ER (FP) PO ONE (11:37)
[2021-01-31] MEDS: LABETALOL HCL 200 MG TABLET (FP) PO SCH ×3 (11:59→16:59)
[2021-01-31 17:09] VITALS: BP 116/80; PULSE 77; TEMP 98.2
== END 2021-01-31 19:24 | disposition home or self-care (01) | DRG 391 ==
LOC: JER 15:25 → JERBED 23:54 → OBSVTOIN 01-30 01:38 → J5S 01-30 02:58
PROVIDERS: ADMIT Internal Medicine; ATTEND Internal Medicine
PROC: 5A1D70Z Performance of Urinary Filtration, Intermittent, Less than 6 Hours Per Day (ICD-10-PCS; principal; 2021-01-30)
DX: R11.2 Nausea with vomiting, unspecified (principal); N18.6 End stage renal disease; I12.0 Hypertensive chronic kidney disease with stage 5 chronic kidney disease or end stage renal disease; E83.52 Hypercalcemia; I10 Essential (primary) hypertension; D72.829 Elevated white blood cell count, unspecified; K21.9 Gastro-esophageal reflux disease without esophagitis; K31.84 Gastroparesis; E87.6 Hypokalemia; Z99.2 Dependence on renal dialysis
CPT/HCPCS: 36415; 71046-TC-FY; 74150-TC; 80048; 80053; 82330; 82962; 83615; 83735; 83970; 83986; 84100; 84132; 85025; 85027; 86803; 87040; 87070; 87075; 87205; 87340; 93005; 93010; 99285-25; C9803; G0378; J0735; Q0162; U0003; U0005

== ENCOUNTER 2021-05-12 14:09 | Observation (INO) | payer BC ==
[2021-05-12 18:13] LABS: BASO % 0.8 % (0-2.0); EOS % 3.1 % (0-4.5); HEMATOCRIT 27.6 % (35.4-49); HEMOGLOBIN 8.9 GM/dL (11.7-16.9); LYMPH % 13.1 % (8-40); MCHC 32.1 g/dl (32.0-35.9); MEAN CELL VOLUME 90.3 fl (80-96); MEAN PLT VOLUME 7.9 fl (7.5-11.1); PLATELET COUNT 414 10^3/uL (134-434); RBC 3.05 M/mm3 (4.00-5.60); RDW 18.3 % (11.9-15.9); WHITE BLOOD COUNT 7.3 K/mm3 (4.0-10.0)
[2021-05-12 18:17] LABS: INR 1.37 (0.83-1.09); PROTHROMBIN TIME (PATIENT) 16.9 SEC (9.7-13.0)
[2021-05-12 18:19] LABS: ACTIVATED PTT 29.6 SECONDS (25.2-36.5)
[2021-05-12 18:27] LABS: CHLORIDE 93 mmol/L (98-107); SODIUM 133 mmol/L (136-145)
[2021-05-12 18:29] LABS: CALCIUM 8.9 mg/dL (8.5-10.1)
[2021-05-12 18:30] LABS: ALBUMIN 2.5 g/dl (3.4-5.0); ANION GAP 14 MMOL/L (8-16); BLOOD UREA NITROGEN 54.5 mg/dL (7-18); CO2 26 mmol/L (21-32); GLUCOSE,RANDOM 116 mg/dL (74-106)
[2021-05-12 18:33] LABS: SGOT/AST 4 U/L (15-37); SGPT/ALT 10 U/L (13-61)
[2021-05-12 18:35] LABS: BILIRUBIN,TOTAL 0.5 mg/dL (0.2-1); TOT PROT 7.4 g/dl (6.4-8.2)
[2021-05-12 18:36] LABS: ALK PHOS 79 U/L (45-117)
[2021-05-12 18:44] LABS: CREATININE 19.6 mg/dL (0.55-1.3)
[2021-05-12] MEDS ORDERED: ACETAMINOPHEN 325 MG TABLET (FP) ONE (22:00)
[2021-05-12 23:07] LABS: IRON SERUM 33 ug/dL (50-175)
[2021-05-12 23:08] LABS: TOTAL IRON BINDING CAPACITY 172 ug/dL (250-450)
[2021-05-13 03:33] VITALS: BMI 24.2
[2021-05-13 07:34] LABS: BASO % 0.7 % (0-2.0); EOS % 2.7 % (0-4.5); HEMATOCRIT 25.2 % (35.4-49); HEMOGLOBIN 8.5 GM/dL (11.7-16.9); MCH 29.7 pg (25.7-33.7); MCHC 33.7 g/dl (32.0-35.9); MEAN PLT VOLUME 7.8 fl (7.5-11.1); MONO % 9.5 % (3.8-10.2); NEUT % 71.1 % (42.8-82.8); PLATELET COUNT 363 10^3/uL (134-434); RBC 2.86 M/mm3 (4.00-5.60); WHITE BLOOD COUNT 6.2 K/mm3 (4.0-10.0)
[2021-05-13 07:56] LABS: CHLORIDE 91 mmol/L (98-107); SODIUM 131 mmol/L (136-145)
[2021-05-13 08:05] LABS: ALBUMIN 2.2 g/dl (3.4-5.0); ANION GAP 14 MMOL/L (8-16); BLOOD UREA NITROGEN 62.5 mg/dL (7-18); CALCIUM 8.6 mg/dL (8.5-10.1); CO2 25 mmol/L (21-32)
[2021-05-13 08:06] LABS: GLUCOSE,RANDOM 93 mg/dL (74-106); MAGNESIUM 1.5 mg/dL (1.8-2.4)
[2021-05-13 08:08] LABS: PHOSPHOROUS 4.3 mg/dL (2.5-4.9); SGOT/AST < 3 U/L (15-37); SGPT/ALT 9 U/L (13-61)
[2021-05-13 08:09] LABS: BILIRUBIN,TOTAL 0.5 mg/dL (0.2-1); TOT PROT 6.7 g/dl (6.4-8.2)
[2021-05-13 08:11] LABS: ALK PHOS 68 U/L (45-117)
[2021-05-13 08:37] LABS: CREATININE 21.5 mg/dL (0.55-1.3)
[2021-05-13] MEDS: PERITONEAL DIALYSIS 2.5% SOLN 2,500 ML IP SCH ×3 (11:00→21:01)
[2021-05-13] MEDS: LABETALOL HCL 100 MG TABLET (FP) PO SCH ×2 (13:32→21:02)
[2021-05-13] MEDS: cloNIDine HCL 0.1 MG TABLET PO SCH ×2 (13:33→21:05)
[2021-05-13] MEDS: LOSARTAN POTASSIUM 50 MG TABLET PO SCH (13:33)
[2021-05-13] MEDS: CALCITRIOL 0.25 MCG CAPSULE (FP) PO SCH (13:33)
[2021-05-13 16:40] LABS: HEMATOCRIT 24.6 % (35.4-49); HEMOGLOBIN 8.3 GM/dL (11.7-16.9); MCH 29.7 pg (25.7-33.7); MEAN CELL VOLUME 87.5 fl (80-96); MEAN PLT VOLUME 7.8 fl (7.5-11.1); PLATELET COUNT 372 10^3/uL (134-434); RBC 2.81 M/mm3 (4.00-5.60); RDW 17.8 % (11.9-15.9); WHITE BLOOD COUNT 6.3 K/mm3 (4.0-10.0)
[2021-05-13] MEDS ORDERED: MAGNESIUM OXIDE 400 MG TABLET (FP) PO ONE (18:02)
[2021-05-13] MEDS: SEVELAMER CARBONATE 800 MG TAB (FP) PO SCH (18:17)
[2021-05-14] MEDS: PERITONEAL DIALYSIS 2.5% SOLN 2,500 ML IP SCH ×3 (03:12→14:30)
[2021-05-14 07:08] LABS: BASO % 0.6 % (0-2.0); EOS % 2.7 % (0-4.5); HEMATOCRIT 25.6 % (35.4-49); HEMOGLOBIN 8.7 GM/dL (11.7-16.9); LYMPH % 15.6 % (8-40); MCH 29.8 pg (25.7-33.7); MEAN CELL VOLUME 87.5 fl (80-96); MEAN PLT VOLUME 7.7 fl (7.5-11.1); MONO % 8.4 % (3.8-10.2); NEUT % 72.7 % (42.8-82.8); PLATELET COUNT 369 10^3/uL (134-434); RBC 2.92 M/mm3 (4.00-5.60); RDW 17.9 % (11.9-15.9)
[2021-05-14 07:24] LABS: CHLORIDE 92 mmol/L (98-107); SODIUM 131 mmol/L (136-145)
[2021-05-14 07:42] LABS: CALCIUM 8.5 mg/dL (8.5-10.1)
[2021-05-14 07:43] LABS: ALBUMIN 2.2 g/dl (3.4-5.0); ANION GAP 15 MMOL/L (8-16); BLOOD UREA NITROGEN 68.3 mg/dL (7-18); CO2 24 mmol/L (21-32); GLUCOSE,RANDOM 110 mg/dL (74-106); MAGNESIUM 1.6 mg/dL (1.8-2.4)
[2021-05-14 07:46] LABS: SGOT/AST < 3 U/L (15-37); SGPT/ALT 7 U/L (13-61)
[2021-05-14 07:48] LABS: BILIRUBIN,TOTAL 0.5 mg/dL (0.2-1); TOT PROT 6.8 g/dl (6.4-8.2)
[2021-05-14 07:49] LABS: ALK PHOS 71 U/L (45-117)
[2021-05-14 07:58] LABS: CREATININE 21.2 mg/dL (0.55-1.3)
[2021-05-14] MEDS ORDERED: MAGNESIUM OXIDE 400 MG TABLET (FP) PO ONE (08:00)
[2021-05-14] MEDS: SEVELAMER CARBONATE 800 MG TAB (FP) PO SCH ×3 (08:56→17:40)
[2021-05-14] MEDS: LOSARTAN POTASSIUM 50 MG TABLET PO SCH (09:44)
[2021-05-14] MEDS: cloNIDine HCL 0.1 MG TABLET PO SCH (09:44)
[2021-05-14] MEDS: LABETALOL HCL 100 MG TABLET (FP) PO SCH (09:44)
[2021-05-14] MEDS: CALCITRIOL 0.25 MCG CAPSULE (FP) PO SCH (09:45)
[2021-05-14] MEDS ORDERED: MAGNESIUM CL 64 MG TABLET.SA PO SCH (11:30)
[2021-05-14 18:39] VITALS: BP 141/75; PULSE 53; TEMP 98.5
== END 2021-05-14 18:57 | disposition home or self-care (01) ==
LOC: JER 14:09 → INTOOBSV 17:53 → JERBED 17:53 → UNDOADMOB 17:53 → J4S 05-13 02:57 → JERBED 05-13 02:57 → J4S 05-13 14:13 → JERBED 05-13 14:13
PROVIDERS: ADMIT Internal Medicine; ATTEND Nurse Practitioner Family
PROC: 3E033GC Introduction of Other Therapeutic Substance into Peripheral Vein, Percutaneous Approach (ICD-10-PCS; principal; 2021-05-13)
DX: I12.0 Hypertensive chronic kidney disease with stage 5 chronic kidney disease or end stage renal disease (principal); N18.6 End stage renal disease; N17.9 Acute kidney failure, unspecified; D64.9 Anemia, unspecified; Z99.2 Dependence on renal dialysis; Z29.9 Encounter for prophylactic measures, unspecified
CPT/HCPCS: 36415; 80053; 83540; 83550; 83735; 84100; 85025; 85027; 85045; 85610; 85730; 86850; 86900; 86901; 87040; 93005; 93010; 93971; 99285-25; C9803; G0378; J0735; U0003; U0005

== ENCOUNTER 2021-05-18 15:11 | Inpatient (IN) | payer BC ==
[2021-05-18 18:29] LABS: BASO % 1.1 % (0-2.0); EOS % 0.5 % (0-4.5); HEMATOCRIT 33.5 % (35.4-49); HEMOGLOBIN 11.3 GM/dL (11.7-16.9); LYMPH % 11.6 % (8-40); MCH 29.5 pg (25.7-33.7); MCHC 33.7 g/dl (32.0-35.9); MEAN CELL VOLUME 87.4 fl (80-96); MEAN PLT VOLUME 8.5 fl (7.5-11.1); MONO % 9.7 % (3.8-10.2); NEUT % 77.1 % (42.8-82.8); PLATELET COUNT 487 10^3/uL (134-434); RBC 3.83 M/mm3 (4.00-5.60); RDW 17.6 % (11.9-15.9); WHITE BLOOD COUNT 8.2 K/mm3 (4.0-10.0)
[2021-05-18 18:36] LABS: INR 1.3 (0.83-1.09)
[2021-05-18 18:39] LABS: ACTIVATED PTT 24.8 SECONDS (25.2-36.5)
[2021-05-18 18:46] LABS: CHLORIDE 90 mmol/L (98-107); SODIUM 132 mmol/L (136-145)
[2021-05-18 18:49] LABS: ANION GAP 17 MMOL/L (8-16); BLOOD UREA NITROGEN 64.5 mg/dL (7-18); CO2 25 mmol/L (21-32); GLUCOSE,RANDOM 101 mg/dL (74-106)
[2021-05-18 18:52] LABS: SGOT/AST 13 U/L (15-37); SGPT/ALT 10 U/L (13-61)
[2021-05-18 18:53] LABS: BILIRUBIN,TOTAL 0.4 mg/dL (0.2-1)
[2021-05-18 18:55] LABS: ALK PHOS 83 U/L (45-117)
[2021-05-18 19:03] LABS: CALCIUM 10.1 mg/dL (8.5-10.1); CREATININE 20.9 mg/dL (0.55-1.3); TOT PROT 9.1 g/dl (6.4-8.2)
[2021-05-18] MEDS ORDERED: CEFAZOLIN 2 GM in DEXTROSE 5%-WATER - 100 ML IVPB ONE (22:04)
[2021-05-18] MEDS ORDERED: cloNIDine HCL 0.1 MG TABLET ONE (22:25)
[2021-05-18] MEDS ORDERED: LABETALOL HCL 100 MG TABLET (FP) ONE (22:25)
[2021-05-18] MEDS ORDERED: CEFAZOLIN 2 GM/D5W 2 GM/50 ML ML IVPB ONE (22:25)
[2021-05-18] MEDS: LABETALOL HCL 100 MG TABLET (FP) PO SCH (22:38)
[2021-05-18] MEDS: cloNIDine HCL 0.1 MG TABLET PO SCH (22:38)
[2021-05-19 07:41] LABS: HEMATOCRIT 30.8 % (35.4-49); HEMOGLOBIN 10.3 GM/dL (11.7-16.9); MCH 29.6 pg (25.7-33.7); MCHC 33.5 g/dl (32.0-35.9); MEAN CELL VOLUME 88.3 fl (80-96); MEAN PLT VOLUME 8.4 fl (7.5-11.1); PLATELET COUNT 416 10^3/uL (134-434); RBC 3.49 M/mm3 (4.00-5.60); RDW 17.5 % (11.9-15.9)
[2021-05-19 07:57] LABS: CHLORIDE 87 mmol/L (98-107); SODIUM 129 mmol/L (136-145)
[2021-05-19] MEDS ORDERED: SEVELAMER CARBONATE 800 MG TAB (FP) PO SCH (08:00)
[2021-05-19 08:07] LABS: CALCIUM 9.5 mg/dL (8.5-10.1)
[2021-05-19 08:08] LABS: ALBUMIN 2.6 g/dl (3.4-5.0); ANION GAP 17 MMOL/L (8-16); CO2 25 mmol/L (21-32); GLUCOSE,RANDOM 98 mg/dL (74-106); MAGNESIUM 1.9 mg/dL (1.8-2.4)
[2021-05-19 08:10] LABS: SGPT/ALT 8 U/L (13-61)
[2021-05-19 08:11] LABS: INR 1.3 (0.83-1.09); SGOT/AST 4 U/L (15-37)
[2021-05-19 08:12] LABS: BILIRUBIN,TOTAL 0.5 mg/dL (0.2-1); TOT PROT 8.1 g/dl (6.4-8.2)
[2021-05-19 08:13] LABS: ACTIVATED PTT 29.3 SECONDS (25.2-36.5); ALK PHOS 78 U/L (45-117)
[2021-05-19 09:02] LABS: BLOOD UREA NITROGEN 78.6 mg/dL (7-18); CREATININE 22.2 mg/dL (0.55-1.3)
[2021-05-19 09:57] VITALS: BP 129/91; PULSE 78; TEMP 98.4
[2021-05-19] MEDS: cloNIDine HCL 0.1 MG TABLET PO SCH (09:57)
[2021-05-19] MEDS: LABETALOL HCL 100 MG TABLET (FP) PO SCH (09:59)
[2021-05-19] MEDS ORDERED: PERITONEAL DIALYSIS 2.5% SOLN 2,500 ML IP SCH (10:00)
[2021-05-19] MEDS ORDERED: CALCITRIOL 0.25 MCG CAPSULE (FP) PO SCH (10:00)
[2021-05-19] MEDS ORDERED: LOSARTAN POTASSIUM 50 MG TABLET PO SCH (10:00)
== END 2021-05-19 12:19 | disposition home or self-care (01) | DRG 314 ==
LOC: JER 15:11 → JERBED 19:42 → J4S 05-19 01:10
PROVIDERS: ADMIT Internal Medicine; ATTEND Nurse Practitioner Acute Care
DX: T82.838A Hemorrhage due to vascular prosthetic devices, implants and grafts, initial encounter (principal); N18.6 End stage renal disease; I12.0 Hypertensive chronic kidney disease with stage 5 chronic kidney disease or end stage renal disease; Y83.8 Other surgical procedures as the cause of abnormal reaction of the patient, or of later complication, without mention of misadventure at the time of the procedure; D64.9 Anemia, unspecified; R11.2 Nausea with vomiting, unspecified; Z99.2 Dependence on renal dialysis
CPT/HCPCS: 36415; 80053; 83735; 84100; 85025; 85027; 85610; 85730; 86850; 86900; 86901; 93005; 93010; 99285-25; C9803; J0735; U0003; U0005

== ENCOUNTER 2021-05-22 04:05 | Day surgery (SDC) | payer BC ==
[2021-05-21 16:54] VITALS: BMI 22.5
[2021-05-22] MEDS ORDERED: LIDOCAINE HCL 2% (20ML MULTI-DOSE VIAL) ONE (10:38)
[2021-05-22] MEDS ORDERED: HEPARIN NA (PORCINE) 5,000 UNITS/ML 1ML VIAL ONE (10:38)
[2021-05-22] MEDS ORDERED: LIDOCAINE HCL 1%, 10 MG/ML (20ML VIAL) ONE (10:38)
[2021-05-22] MEDS ORDERED: BUPIVACAINE HCL/PF 0.5% (5MG/ML) 10 ML VIAL ONE (11:15)
[2021-05-22] MEDS ORDERED: MIDAZOLAM HCL 2 MG/2 ML SINGLE DOSE VIAL ONE ×2 (11:17)
[2021-05-22] MEDS ORDERED: PROPOFOL 20 ML ONE (12:08)
[2021-05-22] MEDS ORDERED: LIDOCAINE HCL 1%, 10 MG/ML (20ML VIAL) NR ONE (12:11)
[2021-05-22] MEDS ORDERED: POVIDONE-IODINE 10% SOLN 118 ML BOTTLE TP ONE (13:07)
[2021-05-22] MEDS ORDERED: ONDANSETRON 4 MG/2 ML VIAL IVPUSH PRN (13:36)
[2021-05-22 18:26] VITALS: BP 110/74; PULSE 80; TEMP 97.5
== END 2021-05-22 18:00 | disposition home or self-care (01) ==
LOC: JASUSAT 04:05
PROVIDERS: ATTEND Surgery Vascular Surgery
PROC: 03LY0ZZ Occlusion of Upper Artery, Open Approach (ICD-10-PCS; principal; 2021-05-22 12:00)
PROC: 03BY0ZZ Excision of Upper Artery, Open Approach (ICD-10-PCS; 2021-05-22 12:00)
DX: T82.510A Breakdown (mechanical) of surgically created arteriovenous fistula, initial encounter (principal); I12.0 Hypertensive chronic kidney disease with stage 5 chronic kidney disease or end stage renal disease; N18.6 End stage renal disease; Y82.8 Other medical devices associated with adverse incidents; Y92.9 Unspecified place or not applicable; Z99.2 Dependence on renal dialysis
CPT/HCPCS: 36415; 84132; 86850; 86900; 86901; 94760; J1644